=== PATIENT | male | born 2000 | race Caucasian/White ===

== ENCOUNTER 2018-01-27 11:46 | Emergency (ER) | payer BC, OTHER ==
[2018-01-27] MEDS ORDERED: Lidocaine 1% 20 ML MDV INJECT ONE (12:00)
[2018-01-27] MEDS ORDERED: Bacitracin Oint 1 GM U/D Packet TOP ONE (12:01)
--- NOTE | 2018-01-27 12:43 | EDM.PDOC ---
ED HPI GENERAL MEDICAL PROBLEM - General Chief Complaint: Laceration Stated Complaint: CUT THURMB ON LEFT HAND Time Seen by Provider: 01/27/18 12:43 Source of Information: Reports: Patient, Family History Limitations: Reports: No Limitations - History of Present Illness INITIAL COMMENTS - FREE TEXT/NARRATIVE: pt arrived wth a 2.5in laceration on the rae aspct of the thumb. It encircles the thumb. He is complaining of some numbness in the outer aspect of the thumb. r Onset: Today, Sudden Duration: Hour(s): Location: Reports: Upper Extremity, Left Associated Symptoms: Reports: No Other Symptoms hand Pain Score (Numeric/FACES): 2 - Related Data Allergies Allergy/AdvReac Type Severity Reaction Status Date / Time No Known Allergies Allergy Verified 01/27/18 12:08 Home Meds: Home Meds NK [No Known Home Meds] 01/27/18 [History] Past Medical History - Past Health History Medical/Surgical History: Denies Medical/Surgical History Social & Family History - Tobacco Use Packs/Tins Daily: 1 - Caffeine Use Caffeine Use: Reports: Coffee, Soda - Recreational Drug Use Recreational Drug Use: No ED ROS GENERAL - Review of Systems Review Of Systems: See Below Constitutional: Reports: No Symptoms HEENT: Reports: No Symptoms Respiratory: Reports: No Symptoms Cardiovascular: Reports: No Symptoms Endocrine: Reports: No Symptoms GI/Abdominal: Reports: No Symptoms : Reports: No Symptoms Skin: Reports: Other (laceration of the left thumb. ) ED EXAM, SKIN/RASH Exam: See Below Text/Narrative:: pt has a 2.5 inch laceration on the rae aspect of the left thumb. H has full range of motion of the thumb, slight numbness on the outside of the thumb. This is deep to the muscle. Exam Limited By: No Limitations General Appearance: Alert, Anxious, Mild Distress Back Exam: Other (pt has a 2.5 inch laceration of the base of the thumb, on the rae aspect. He has good range of motion. ) Course - Vital Signs Last Recorded V/S: Last Vital Signs Temp 36.7 C 01/27/18 12:07 Pulse 69 01/27/18 12:07 Resp 15 01/27/18 12:07 BP 130/81 01/27/18 12:07 Pulse Ox 100 01/27/18 12:07 - Orders/Labs/Meds Meds: Medications Discontinued Medications Generic Name Dose Route Start Last Admin Trade Name [place] PRN Reason Stop Dose Admin Bacitracin 1 dose 01/27/18 12:01 Bacitracin Oint 1 Gm TOP 01/27/18 12:02 ONETIME ONE Lidocaine HCl 20 ml 01/27/18 12:00 Xylocaine 1% INJECT 01/27/18 12:01 ONETIME ONE - Re-Assessments/Exams Free Text/Narrative Re-Assessment/Exam: 01/27/18 12:48 Hand was soaked and clened well The wound was infiltrated with lidocain. It was scrubbed well and closed with 5-0 chromic and 5-0 prolene. It was dressed with bacatracin nd a pressure dressing. Departure - Departure Time of Disposition: 12:40 Disposition: Home, Self-Care 01 Condition: Fair Clinical Impression: Laceration - Discharge Information Referrals: PCP,None [Primary Care Provider] - Forms: ED Department Discharge Care Plan Goals: keep present dressing on until wed am then apply a dry dressing. change dressing daily, keep dry, sr in 7-8 days, numbness should gradually improve.
== END 2018-01-27 13:15 | disposition home or self-care (01) ==
LOC: JP.ED 11:46
DX: S61.012A Laceration without foreign body of left thumb without damage to nail, initial encounter (principal); F17.210 Nicotine dependence, cigarettes, uncomplicated; X58.XXXA Exposure to other specified factors, initial encounter
CPT/HCPCS: 12002; 99283-25

== ENCOUNTER 2018-02-03 10:22 | Emergency (ER) | payer OTHER ==
--- NOTE | 2018-02-03 10:44 | EDM.PDOC ---
ED HPI GENERAL MEDICAL PROBLEM - General Chief Complaint: Wound Recheck Stated Complaint: REMOVE STITCHES Time Seen by Provider: 02/03/18 10:30 Source of Information: Reports: Patient, Old Records, RN History Limitations: Reports: No Limitations - History of Present Illness INITIAL COMMENTS - FREE TEXT/NARRATIVE: 17 yo male here for suture removal. Sutures were originally placed in the ER here. Has no concerns. Onset: Other Onset Date: 01/27/18 Duration: Week(s): (1), Improving Location: Reports: Upper Extremity, Right Severity: Mild Improves with: Reports: Other (time) Worsens with: Reports: None Context: Reports: Trauma Associated Symptoms: Reports: No Other Symptoms Treatments SR. MEDIA MANAGER: Reports: Other (see below) (sutured a week ago.) - Related Data Allergies Allergy/AdvReac Type Severity Reaction Status Date / Time No Known Allergies Allergy Verified 01/27/18 12:08 Home Meds: Home Meds NK [No Known Home Meds] 01/27/18 [History] Past Medical History - Past Health History Medical/Surgical History: Denies Medical/Surgical History Social & Family History - Tobacco Use Smoking Status *Q: Never Smoker Packs/Tins Daily: 1 - Caffeine Use Caffeine Use: Reports: Coffee, Energy Drinks, Soda - Recreational Drug Use Recreational Drug Use: No ED ROS GENERAL - Review of Systems Review Of Systems: See Below Constitutional: Reports: No Symptoms Skin: Reports: Wound (R thumb base, healing normally) Neurological: Reports: No Symptoms ED EXAM, SKIN/RASH Exam: See Below Exam Limited By: No Limitations General Appearance: Alert, WD/WN, No Apparent Distress Extremities: Normal Inspection, Normal Range of Motion, Non-Tender Neurological: Alert, Oriented, CN II-XII Intact, Normal Cognition, No Motor/ Sensory Deficits Psychiatric: Normal Affect, Normal Mood Skin: Warm, Dry, Normal Color, No Rash, Wound/Incision (Healing laceration to the base of the R thumb. No infection. ) Location, Skin: Upper Extremity, Right Characteristics: Linear ED WOUND PROCEDURES - Additional/Other Procedure(s) Other (Free Text) Procedure(s): Sutures removed per nursing. Course - Vital Signs Last Recorded V/S: Last Vital Signs Temp 36.6 C 02/03/18 10:35 Pulse 76 02/03/18 10:35 Resp 16 02/03/18 10:35 BP 141/87 H 02/03/18 10:35 Pulse Ox 99 02/03/18 10:35 Departure - Departure Time of Disposition: 10:45 Disposition: Home, Self-Care 01 Condition: Good Clinical Impression: Visit for suture removal - Discharge Information Referrals: PCP,None [Primary Care Provider] - Forms: ED Department Discharge Additional Instructions: Keep wound covered for protection for a few more days. Recheck as needed.
== END 2018-02-03 10:49 | disposition home or self-care (01) ==
LOC: JP.ED 10:22
DX: S61.011D Laceration without foreign body of right thumb without damage to nail, subsequent encounter (principal); X58.XXXD Exposure to other specified factors, subsequent encounter
CPT/HCPCS: 99281